=== PATIENT | female | born 1970 | race Caucasian/White ===

== ENCOUNTER 2021-03-18 07:00 | Emergency (ER) | payer OTHER ==
[~2021-03-18 07:00] MED LIST: LASIX 40 MG TAB40 MG PO
[2021-03-18 08:16] LABS: HEMOGLOBIN 14.5 gm/dl (12.3-15.3); RED BLOOD COUNT 5.1 M/UL (4.00-5.10); WHITE BLOOD COUNT 10.7 K/UL (4.5-11.0)
[2021-03-18 08:39] LABS: BUN/CREATININE RATIO 23 (0-10)
[2021-03-18] MEDS ORDERED: ZOFRAN ODT 4 MG4 MG PO (12:07)
[2021-03-18] MEDS ORDERED: PEPCID20 MG PO (12:07)
== END 2021-03-18 12:21 | disposition home or self-care (01) ==
LOC: ER1 07:00
PROVIDERS: Nurse Practitioner
DX: R51.9 Headache, unspecified (principal); R11.2 Nausea with vomiting, unspecified; J45.909 Unspecified asthma, uncomplicated; Z90.710 Acquired absence of both cervix and uterus; Z90.49 Acquired absence of other specified parts of digestive tract; Z88.0 Allergy status to penicillin; Z88.1 Allergy status to other antibiotic agents; Z88.5 Allergy status to narcotic agent; F17.210 Nicotine dependence, cigarettes, uncomplicated
CPT/HCPCS: 70450; 70496; 71045; 80053; 80307; 81001; 82550; 82553; 83735; 83874; 84484; 85025; 96374; 96375; 99284; J0780; J1885; J2060; J2405; Q9967